=== PATIENT | female | born 1945 | race Caucasian/White ===

== ENCOUNTER 2016-12-11 10:52 | Day surgery (SDC) | payer MEDICARE, OTHER ==
--- NOTE | ~2016-12-11 | EGD ---
EGD REPORT [facility] [address] [place] [address] NAME: SARA WILKINSON : [birth year] [place] [facility] [place] [id number] AGE: 71 ADM/REG DATE : 12/11/16 MR#: [id number] REPORT SERV DATE: 12/11/16 DICTATED BY: LASHAWN NOLEN DATE: 12/11/16 REPORT STATUS : Draft TRANSCRIBED BY: [employer] DATE: 12/11/16 [facility] Patient Name: Sara Wilkinson Date of : 1945 Attending MD: LASHAWN NOLEN MD Procedure Date No Time: 12/11/2016 Procedure: Colonoscopy Indications: Clinically significant diarrhea of unexplained origin Referring MD: LASHAWN CHEEMA MD, SNEHA RUCKER Medicines: as per anesthesia Complications: No immediate complications. Procedure: Pre-Anesthesia Assessment: - ASA Grade Assessment: III - A patient with severe systemic disease. After I obtained informed consent, the scope was passed under direct vision. Throughout the procedure, the patient's blood pressure, pulse, and oxygen saturations were monitored continuously. The PCF [id number] was introduced through the anus and advanced to the cecum, identified by appendiceal orifice and ileocecal valve. The colonoscopy was performed without difficulty. The patient tolerated the procedure. The quality of the bowel preparation was adequate to identify polyps. Findings: The perianal and digital rectal examinations were normal. A sessile polyp was found in the ascending colon. The polyp was 4 mm in size. The polyp was removed with a cold biopsy forceps. Resection and retrieval were complete. Internal hemorrhoids were found during endoscopy and were mild. Four biopsies were obtained in the rectum and in the ascending colon with cold forceps for histology. Impression: - One 4 mm polyp in the ascending colon. Resected and retrieved. - Internal hemorrhoids. - Four biopsies were obtained in the rectum and in the ascending colon. Recommendation: - Await pathology results. - Repeat colonoscopy for surveillance based on pathology results. Procedure Code(s): --- Professional --- 72219, Colonoscopy, flexible, proximal to splenic EGD REPORT [facility] [address] [facility] [place] [address] NAME: SARA WILKINSON : [birth year] [place] [facility] [place] [id number] AGE: 71 ADM/REG DATE : 12/11/16 MR#: [id number] REPORT SERV DATE: 12/11/16 DICTATED BY: LASHAWN NOLEN DATE: 12/11/16 REPORT STATUS : Draft TRANSCRIBED BY: [employer] DATE: 12/11/16 flexure; with biopsy, single or multiple Diagnosis Code(s): --- Professional --- D12.2, Benign neoplasm of ascending colon K64.8, Other hemorrhoids R19.7, Diarrhea, unspecified CPT copyright 2013 [employer]. All rights reserved. The codes documented in this report are preliminary and upon marine engine machinist review may be revised to meet current compliance requirements. LASHAWN NOLEN MD 12/11/2016 1:09 PM This report has been signed electronically. Number of Addenda: 0 Note Initiated On: 12/11/2016 12:10 PM Scope Withdrawal Time 0 hours 13 minutes 48 seconds [address] [facility] [place] [id number]
--- NOTE | ~2016-12-11 | EGD ---
EGD REPORT [facility] [address] [place] [address] NAME: SARA WILKINSON : [birth year] STATUS : REG [facility]#: [id number] AGE: 71 ADM/REG DATE : 12/11/16 MR#: [id number] REPORT SERV DATE: 12/11/16 DICTATED BY: LASHAWN NOLEN DATE: 12/11/16 REPORT STATUS : Draft [facility] DATE: 12/11/16 [facility] Patient Name: Sara Wilkinson Date of : 1945 Attending MD: LASHAWN NOLEN MD Procedure Date No Time: 12/11/2016 Procedure: Upper GI endoscopy Indications: Dysphagia, Heartburn, Suspected esophageal reflux, Gastroparesis, Diarrhea, Nausea with vomiting, Weight loss Referring MD: LASHAWN CHEEMA MD, SNEHA RUCKER Medicines: as per anesthesia Complications: No immediate complications. Procedure: Pre-Anesthesia Assessment: - ASA Grade Assessment: III - A patient with severe systemic disease. After obtaining informed consent, the endoscope was passed under direct vision. Throughout the procedure, the patient's blood pressure, pulse, and oxygen saturations were monitored continuously. The GIF H190 [id number] was introduced through the mouth, and advanced to the third part of duodenum. The upper GI endoscopy was accomplished without difficulty. The patient tolerated the procedure. Findings: The examined esophagus was normal. The scope was withdrawn. Dilation was performed with a Vidal dilator with no resistance at 44 Fr. A small hiatus hernia was present. Localized mild inflammation characterized by erythema was found in the gastric antrum. Biopsies were taken with a cold forceps for histology. The examined duodenum was normal. Biopsies were taken with a cold forceps for histology. Impression: - Normal esophagus. Dilated. - Hiatus hernia. - Gastritis. Biopsied. - Normal examined duodenum. Biopsied. Recommendation: - Await pathology results. - Follow an antireflux regimen. - Continue present medications. Procedure Code(s): --- Professional --- 41467, Esophagogastroduodenoscopy, flexible, transoral; EGD REPORT [address] [address] NAME: SARA WILKINSON : [birth year] STATUS : [place] [facility] [place] [facility] [place] PAT#: [id number] AGE: 71 ADM/REG DATE : 12/11/16 MR#: [id number] REPORT SERV DATE: 12/11/16 DICTATED BY: LASHAWN NOLEN. DATE: 12/11/16 REPORT STATUS : Draft TRANSCRIBED BY: [employer] DATE: 12/11/16 with biopsy, single or multiple 45207, Dilation of esophagus, by unguided sound or bougie, single or multiple passes Diagnosis Code(s): --- Professional --- K44.9, Diaphragmatic hernia without obstruction or gangrene K29.70, Gastritis, unspecified, without bleeding R13.10, Dysphagia, unspecified R12, Heartburn K31.84, Gastroparesis R19.7, Diarrhea, unspecified R11.2, Nausea with vomiting, unspecified R63.4, Abnormal weight loss CPT copyright 2013 [employer]. All rights reserved. The codes documented in this report are preliminary and upon field hand review may be revised to meet current compliance requirements. LASHAWN NOLEN MD 12/11/2016 12:38 PM This report has been signed electronically. Number of Addenda: 0 Note Initiated On: 12/11/2016 12:12 PM Scope Withdrawal Time 0 hours 0 minutes 0 seconds [address] [place] [id number]
[~2016-12-11 10:52] MED LIST: ACET500CAP PO; ANTIBIOTIC PO; ASA5GR PO; ASAB PO; BEN25 PO; BUM2 PO; BYETTA10 SC; COREG12 PO; COREG25 PO; COREG6 PO; COZ25 PO; COZ50 PO; COZAAR100 MG PO; CRESTOR40 MG PO; CYANO1000T PO; CYMBALTA60 PO; DIOV80 PO; FESO4 PO; FLEX PO; FORTAMET500 MG PO; GLUCOPHXR PO; GLUCPH PO; HALF81 PO; LANTUS SC; LANTUSCART SC; LEVAQUIN750 MG PO; LEVOTHYROXIN50 MCG PO; LIPITOR80 MG PO; MACROBID PO; MELA3 PO; NEUR100 PO; NEXIUM40 PO; NITROSTAT0.4 MG SL; NORV10 PO; NORV5 PO; NOVOLOG SC; ORGAN-I NR200 MG PO; P20 PO; PEP20 PO; PHOSLO PO; PR25 PO; PREV30 PO; PRILOSEC OTC20 MG PO; PROAIR HFA INH; PROTONIX20 MG PO; REG5 PO; SPIRO25 PO; SYN.05 PO; TUMSROLL PO; ULTRAM50 PO; X5 PO; XODOL 10-300 T1 EACH PO; ZOFRAN ODT4 MG PO; ZYRTEC ALLGY10 MG PO
[2016-12-11 11:19] LABS: CALCIUM, SERUM 9.2 MG/DL (8.5-10.4); CHLORIDE, SERUM 98 MMOL/L (96-112); CO2 (CARBON DIOXIDE) 28 MMOL/L (24-34); GFR AFRICAN AMERICAN 9 ML/MIN (>=60); GFR NON AFRICAN AMERICAN 8 ML/MIN (>=60); GLUCOSE, SERUM 197 MG/DL (60-99); POTASSIUM, SERUM 4.1 MMOL/L (3.5-5.3); SODIUM, SERUM 138 MMOL/L (135-148)
[2016-12-11 11:20] LABS: BUN (BLOOD UREA NITROGEN) 17 MG/DL (6-23); CREATININE 5.15 MG/DL (0.55-1.02)
== END 2016-12-11 23:59 | disposition home or self-care (01) ==
LOC: DMU 10:52
PROVIDERS: Anesthesiology; Internal Medicine Gastroenterology
PROC: 0D758ZZ Dilation of Esophagus, Via Natural or Artificial Opening Endoscopic (ICD-10-PCS; 2016-12-11)
PROC: 0DBK8ZZ Excision of Ascending Colon, Via Natural or Artificial Opening Endoscopic (ICD-10-PCS; principal; 2016-12-11 11:30)
PROC: 0DB98ZX Excision of Duodenum, Via Natural or Artificial Opening Endoscopic, Diagnostic (ICD-10-PCS; 2016-12-11 11:30)
PROC: 0DB68ZX Excision of Stomach, Via Natural or Artificial Opening Endoscopic, Diagnostic (ICD-10-PCS; 2016-12-11 11:30)
DX: D12.2 Benign neoplasm of ascending colon (principal); K64.8 Other hemorrhoids; R19.7 Diarrhea, unspecified; K44.9 Diaphragmatic hernia without obstruction or gangrene; K29.70 Gastritis, unspecified, without bleeding; R13.10 Dysphagia, unspecified; K31.84 Gastroparesis; R11.2 Nausea with vomiting, unspecified; R63.4 Abnormal weight loss; E66.01 Morbid (severe) obesity due to excess calories; N18.6 End stage renal disease; E03.9 Hypothyroidism, unspecified; M79.7 Fibromyalgia; Z90.49 Acquired absence of other specified parts of digestive tract; Z95.0 Presence of cardiac pacemaker; G47.33 Obstructive sleep apnea (adult) (pediatric); J45.909 Unspecified asthma, uncomplicated; K21.9 Gastro-esophageal reflux disease without esophagitis; K31.89 Other diseases of stomach and duodenum; F41.9 Anxiety disorder, unspecified; F32.9 Major depressive disorder, single episode, unspecified; Z88.8 Allergy status to other drugs, medicaments and biological substances; Z90.89 Acquired absence of other organs; E11.22 Type 2 diabetes mellitus with diabetic chronic kidney disease; I13.2 Hypertensive heart and chronic kidney disease with heart failure and with stage 5 chronic kidney disease, or end stage renal disease; I50.9 Heart failure, unspecified; Z79.899 Other long term (current) drug therapy; Z79.891 Long term (current) use of opiate analgesic
CPT/HCPCS: 80048; 88305